=== PATIENT | male | born 1960 | race Caucasian/White ===

== ENCOUNTER 2018-08-28 12:23 | Emergency (ER) | payer OTHER ==
--- NOTE | 2018-08-28 12:33 | ED Physician Documentation ---
General Adult - HISTORIAN Historian: patient - HPI Stated Complaint: high blood pressure Chief Complaint: General Adult Additional Information: Patient presents to ED via [facility] with high blood pressure. Patient states he has had high blood pressure since he was 20 years old. He is in [facility] for alcohol detox and has been there for 4 weeks. He denies withdrawal type symptoms. Today he woke up with a headache radiating to his left shoulder. He denies shortness of breath or chest pain. He has a history of PAF but is currently in NSR. Patient denies visual changes, slurred speech or any weakness. Onset: hours (24) Timing: still present Severity: moderate - ROS CONST: denies: fever EYES/ENT: none CVS/RESP: denies: chest pain, shortness of breath, cough GI/: denies: vomiting, nausea MS/SKIN/LYMPH: none - PAST HX Past History: A-Fib, hypertension Other History: none Surgeries/Procedures: none Allergies/Adverse Reactions: Allergies Allergy/AdvReac Type Severity Reaction Status Date / Time No Known Allergies Allergy Verified 08/28/18 12:46 Home Medications: Ambulatory Orders Medication Instructions Recorded Aspirin 325 mg PO DAILY 08/28/18 Clonidine HCl [Catapres] 0.2 mg PO TID 08/28/18 Levothyroxine Sodium [Synthroid] 175 mcg PO DAILY 08/28/18 Lisinopril 40 mg PO DAILY 08/28/18 Lisinopril 40 mg PO DAILY 08/28/18 Omeprazole 20 mg PO DAILY 08/28/18 Propafenone HCl [Propafenone HCl 225 mg PO BID 08/28/18 ER] amLODIPine BESYLATE [Norvasc] 5 mg PO DAILY 08/28/18 - SOCIAL HX Smoking History: non-smoker Alcohol Use: sober Drug Use: none - FAMILY HX Family History: No - REVIEWED ASSESSMENTS Nursing Assessment Reviewed: Yes Vitals Reviewed: Yes Progress - Progress Progress: 1340 Patient's blood pressure has improve, however, headache is persistent. Will get CT head - EKG/XRAY/CT EKG: NSR Comments: 65 bpm General Adult Physical Exam - PHYSICAL EXAM GENERAL APPEARANCE: no distress EENT: GUY NECK: normal inspection, supple RESPIRATORY: no resp distress, breath sounds normal CVS: reg rate & rhythm, heart sounds normal ABDOMEN: soft, normal bowel sounds, non-tender BACK: normal inspection SKIN: warm/dry EXTREMITIES: non-tender NEURO: oriented X3, motor nml Discharge Clincal Impression: Hypertensive urgency, Neck pain on left side Maxillary sinusitis, acute Qualifiers: Recurrence: non-recurrent Qualified Code(s): J01.00 - Acute maxillary sinusitis, unspecified Referrals: Primary Doctor,No [Primary Care Provider] - 2 Days Additional Instructions: 1. Take Hydralazine as needed for BP >180 systolic or >90 diastolic 2. You may benefit from a sleep study to re-evaluate sleep apnea 3. Norflex as needed for neck pain and headache. Tylenol and/or Ibuprofen as needed for pain 4. Follow up with PCP within 1 week 5. Return to ER for new or worsening symptoms. Condition: Stable Disposition: 01 HOME, SELF-CARE Decision to Admit: NO Date of Decison to Admit: 08/28/18 Decision Time: 14:17
[2018-08-28] MEDS ORDERED: hydrALAZINE HCL 20 MG/1 ML IVP ONE (12:49)
[2018-08-28] MEDS ORDERED: ACETAMINOPHEN 500 MG TABLET PO ONE (12:52)
[2018-08-28] MEDS ORDERED: ORPHENADRINE CITRATE 60 MG/2 ML ML IV ONE (12:53)
[2018-08-28 13:15] LABS: BASOPHILS % 0.9 (0.0-1.5); EOSINOPHILS % 4.6 % (0.0-6.8); MEAN CORPUSCULAR HEMOGLOBIN 34.9 pg (28.0-34.0); MONOCYTES % 8.2 % (0.0-11.0); NEUTROPHILS # 9.3 # k/uL (1.4-7.7)
[2018-08-28 13:33] LABS: eGFR (Non-African) > 60
[2018-08-28 14:59] VITALS: BP 141/78
--- NOTE | 2018-08-28 23:00 | Diagnostic Imaging Report ---
CHARU MCWILLIAMS [facility] [address] [facility] [address] [place], [place]. [address] Report Submission Date: Aug 28, 2018 2:41:44 PM FUDGER Patient Study Name: DEE NELSON Date: Aug 28, 2018 1:51:33 PM FUDGER Modality Type: CT\SR Gender: M Description: CT BRAIN W/O CONTRAST : 60 Institution: [facility] Physician: CHARU MCWILLIAMS Examination: CT head without contrast History: REYES WITH LEFT ARM PAIN Comparison exam: None available Technique: Noncontrast head CT protocol. Findings: Ventricles and sulci are prominent. Cerebrocerebellar parenchyma demonstrates periventricular low attenuation consistent with small vessel disease. No evidence for parenchymal hemorrhage. No evidence for mass or mass effect. No midline shift. No extra axial fluid collections. Partial visualization of the paranasal sinuses demonstrate bilateral maxillary sinus air fluid levels. Scattered mucous thickening within the remaining sinuses. Mastoid air cells, orbits, skull and scalp without gross irregularity. Impression: Age related changes. No acute parenchymal process. No hemorrhage. Scattered sinus mucus thickening with bilateral maxillary sinus air fluid levels. Electronically signed on Aug 28, 2018 2:41:44 PM FUDGER by: Pierre RILEY
== END 2018-08-28 14:54 | disposition home or self-care (01) ==
LOC: ED 12:23
DX: I16.0 Hypertensive urgency (principal); M54.2 Cervicalgia; J01.00 Acute maxillary sinusitis, unspecified
CPT/HCPCS: 36415; 70450; 80053; 84484; 85025; 93005; 96374; 96375; 99283; 99284; J0360; J2360; S1016